=== PATIENT | female | born 1985 | race Caucasian/White ===

== ENCOUNTER 2018-10-28 08:46 | Inpatient (IN) ==
[2018-11-25] MEDS ORDERED: NICOTINE GUM BUCCAL PRN (13:31)
[2018-11-25] MEDS ORDERED: ZOFRAN IV PRN (13:31)
[2018-11-25] MEDS ORDERED: IMODIUM PO PRN ×2 (13:31)
[2018-11-25] MEDS ORDERED: D5W 1,000 ML IV PRN (13:31)
[2018-11-25] MEDS ORDERED: PHENOBARBITAL IV PRN (13:31)
[2018-11-25] MEDS ORDERED: DESYREL PO PRN (13:31)
[2018-11-25] MEDS ORDERED: SEROQUEL PO PRN (13:31)
[2018-11-25] MEDS ORDERED: MAALOX PLUS LIQUID PO PRN (13:31)
[2018-11-25] MEDS ORDERED: ZOFRAN ODT PO PRN (13:31)
[2018-11-25] MEDS ORDERED: TYLENOL PO PRN (13:31)
[2018-11-25] MEDS ORDERED: SENOKOT PO PRN (13:31)
[2018-11-25] MEDS ORDERED: DULCOLAX PR PRN (13:31)
[2018-11-25] MEDS ORDERED: TUBERSOL ID ONE (13:31)
[2018-11-25] MEDS ORDERED: MOTRIN PO PRN (13:31)
[2018-11-25] MEDS ORDERED: NICODERM PATCH TD PRN (13:31)
[2018-11-25] MEDS ORDERED: ZOFRAN IM PRN (13:31)
[2018-11-25 14:02] LABS: UR AMPHETAMINES QUAL PRESUMPTIVE POSITIVE (NONE DETECT); UR BARBITUATES QUAL NONE DETECTED (NONE DETECT); UR BENZODIAZEPIN QUAL NONE DETECTED (NONE DETECT); UR CANNABINOIDS QUAL NONE DETECTED (NONE DETECT); UR COCAINE QUAL NONE DETECTED (NONE DETECT); UR METHADONE QUAL NONE DETECTED (NONE DETECT); UR METHAMPHETAMINE QUAL PRESUMPTIVE POSITIVE (NONE DETECT); UR OPIATES QUAL PRESUMPTIVE POSITIVE (NONE DETECT); UR OXYCODONE QUAL NONE DETECTED (NONE DETECT); UR PCP QUAL PRESUMPTIVE POSITIVE (NONE DETECT); UR PROPOXYPHENE QUAL NONE DETECTED (NONE DETECT); UR TCA QUAL NONE DETECTED (NONE DETECT)
[2018-11-25 14:13] LABS: HEMATOCRIT 40.4 % (37.0-47.0); HEMOGLOBIN 13.7 g/dL (12.0-16.0); MCH 28.8 PG (27-31); MCHC 33.9 g/dL (33-37); MCV 84.9 FL (81-99); MPV 11.6 FL (7.4-10.4); RBC 4.76 XMIL (4.2-5.4); RDW 13.2 % (11.5-14.5); WBC 7.49 X1000 (4.8-10.8)
[2018-11-25 14:32] LABS: INR 0.82; PROTIME 11.7 Seconds (11.0-16.0)
[2018-11-25 14:44] LABS: AGAP 9; ALBUMIN 3.7 g/dL (3.5-5.0); ALKALINE PHOSPHATASE 630 U/L (32-104); AMYLASE 27 U/L (20-200); BUN 12 mg/dL (8-22); CALCIUM 8.7 mg/dL (8.8-10.2); CHLORIDE 100 mmol/L (98-107); COSMO 274; CREATININE 0.5 mg/dL (0.5-0.9); ESTIMATED GFR > 60; GLUCOSE 107 mg/dL (70-104); GOT 69 U/L (10-30); GPT 56 U/L (10-36); LIPASE 22 U/L (13-60); POTASSIUM 3.8 mmol/L (3.5-5.1); SODIUM 137 mmol/L (136-145); TCO2 28 mmol/L (25-35); TOTAL PROTEIN 7.1 g/dL (6.3-8.3)
[2018-11-25 14:47] LABS: URINE SOURCE CLEAN CATCH
[2018-11-25] MEDS ORDERED: ROBAXIN PO PRN (14:51)
[2018-11-25] MEDS ORDERED: BENTYL PO PRN (14:51)
[2018-11-25] MEDS ORDERED: SINEMET 25/100 PO PRN (14:51)
[2018-11-25] MEDS ORDERED: ATARAX PO PRN (14:51)
[2018-11-25] MEDS ORDERED: LIBRIUM PO PRN (14:51)
[2018-11-25 14:55] LABS: CLARITY CLEAR (CLEAR); COLOR YELLOW
[2018-11-25 14:56] LABS: BILIRUBIN URINE NEGATIVE (NEGATIVE); BLOOD URINE NEGATIVE (NEGATIVE); GLUCOSE URINE NEGATIVE (NEGATIVE); KETONE URINE TRACE mg/dL (NEGATIVE); LEUKOCYTES URINE 1+ (NEGATIVE); NITRITE URINE POSITIVE (NEGATIVE); PH URINE 6.5; PROTEIN URINE TRACE mg/dL (NEGATIVE); UROBILINOGEN URINE 1 mg/dL
[2018-11-25 14:59] LABS: URINE BACTERIA 1+ /HFP; URINE CAST NONE SEEN /LPF; URINE CRYSTAL NONE SEEN /HPF; URINE EPITHELIAL CELLS >10 /HPF (<10); URINE YEAST NONE SEEN /HPF
[2018-11-25] MEDS ORDERED: LIBRIUM PO SCH (16:00)
[2018-11-25] MEDS: LIBRIUM PO SCH (22:31)
[2018-11-26] MEDS: LIBRIUM PO SCH ×2 (04:22→09:55)
[2018-11-26] MEDS ORDERED: PROTONIX PO SCH (07:00)
[2018-11-26 08:51] VITALS: BP 117/74
[2018-11-26] MEDS ORDERED: THERA M PLUS PO SCH (09:00)
[2018-11-26] MEDS ORDERED: FOLIC ACID PO SCH (09:00)
[2018-11-26] MEDS ORDERED: VITAMIN B-1 PO SCH (09:00)
--- NOTE | 2018-11-27 10:00 | DISCHARGE SUMMARY ---
ADMISSION DATE: 11/25/2018 DISCHARGE DATE: 11/26/2018 DISCHARGE DIAGNOSES: 1. Nausea and vomiting. 2. Abdominal pain. 3. Myalgias. 4. Paresthesias. 5. Paroxysmal sweating. 6. Chronic tobacco abuse. 7. Chronic anxiety. CONSULTATIONS: None. PROCEDURES: None. BRIEF HOSPITAL COURSE: The patient is a 33-year-old female who presented to the hospital with significant withdrawal symptoms of nausea, vomiting, abdominal pain, myalgias, and paresthesias. She thankfully had an uneventful hospital course. She stated on the morning of her leaving AMA that she was feeling much better. Her withdrawal symptoms were improved. However, she stated that she wanted to smoke. We did offer a nicotine patch. I spent 35 minutes on the date of discharge with Ms. Jean Baptiste, discussing use, abuse, addiction counseling, lifestyle changes, reasons to change, etc. Patient stated that she was feeling very good. DISPOSITION: No discharge disposition was able to be performed as sometime in the afternoon, Ms. Jean Baptiste decided to leave the hospital AMA. cc: Kalpesh Escobar MD
--- NOTE | 2018-11-27 20:30 | HISTORY AND PHYSICAL ---
CHIEF COMPLAINT: Nausea, vomiting. HISTORY OF PRESENT ILLNESS: Patient is a 33-year-old female who presented to [facility] secondary to nausea, vomiting, abdominal pain, myalgias, paroxysmal sweating and opiate abuse. SOCIAL HISTORY: Patient is single, she is unemployed, lives at home in [place]. PAST MEDICAL HISTORY: She has a history of fluid overload after surgical intervention. She has history of hypertension, chronic anxiety. MEDICATIONS: Metoprolol 25. ALLERGIES: No known drug allergies. REVIEW OF SYSTEMS: CINA score is 14 secondary to nausea, vomiting, abdominal pain, myalgias and paresthesias. Denies any headache, blurred vision, change in vision, denies any focalized numbness and weakness in her extremities, denies any dysuria, frequency, urgency, hesitancy, polyuria or polydipsia. Denies skin rashes, weight loss or weight gain. FAMILY HISTORY: Noncontributory. SUBSTANCE ABUSE HISTORY: The patient has a 6-year-old who is in a safety plan with [facility]. She has created social and legal issues due to substance abuse. She was in [facility] for detox in 2018, remained sober for 6 months while she was going to [facility] on Suboxone. Started alcohol at 26, has been sober for 9 years. Started marijuana at 19 has not used in 8 years, started stimulants at 32 has not used in several days. Started opiates at 33, currently is still taking an 8th to a 4th a gram of heroin a day. Started smoking at 19 currently smokes half pack. FAMILY HISTORY: Noncontributory. PHYSICAL: Vital signs reviewed and stable. Patient is awake, alert, she is in no current respiratory distress.HEENT: Normocephalic. Neck: Supple. CV: Regular rate. Chest: Clear. Abdomen: Soft. Extremities: Moves all extremities. Neuro: No focal changes. Skin: Warm, dry, no rashes. ASSESSMENT: 1. Nausea, vomiting. 2. Abdominal pain. 3. Myalgias. 4. Paresthesias. 5. Paroxysmal sweating. 6. Opiate abuse withdrawal and stabilization. PLAN: Will admit patient the hospital, will continue to follow. Her plan is to go to rehab upon discharge. We will admit her, place her on high-dose Librium taper, will use Suboxone as needed to alleviate symptoms. Will begin counseling, further orders as needed. cc: Kalpesh Escobar MD
== END 2018-11-26 12:00 | disposition left against medical advice (07) | DRG 894 ==
LOC: P.DIRADM 11-25 12:09 → P.MEDSURG 11-25 12:21
PROVIDERS: ADMIT Family Medicine; ATTEND Family Medicine
CPT/HCPCS: 80053; 80104; 80301; 80305; 80307; 80320; 81001; 82055; 82150; 83690; 84703; 85027; 85610; 86580; A9270; G0431; G0434; G0477; G0480; G6040

== ENCOUNTER 2019-01-11 17:40 | Inpatient (IN) ==
[2019-01-11] MEDS ORDERED: CALMOSEPTINE OINTMENT TOP PRN (19:41)
[2019-01-11] MEDS ORDERED: ZOFRAN IV PRN (21:34)
[2019-01-11] MEDS ORDERED: ATIVAN IV ONE (21:44)
[2019-01-11] MEDS ORDERED: TYLENOL PO PRN (21:44)
[2019-01-11] MEDS ORDERED: SODIUM CHLORIDE 0.9% INJ SCH (21:45)
[2019-01-11] MEDS ORDERED: TYLENOL PR PRN (21:45)
[2019-01-11] MEDS ORDERED: NS 1,000 ML IV SCH (21:45)
[2019-01-11] MEDS ORDERED: PEPCID IV SCH (21:45)
--- NOTE | 2019-01-11 21:59 | Diag Imaging Result Doc PS360 ---
EXAM: CHEST-PORTABLE 01/11/2019 HISTORY: Toxic Encephalopathy,Poss. Overdose TECHNIQUE: AP portable at 2151 COMMENT: Compared to 01/07/2016 the atelectatic changes present previously on the right have resolved. The heart size and pulmonary vascularity appear to be within normal limits. The left costophrenic angle is clearer than on the previous study although there may be a linear fibrotic opacity tenting the heart border on the left. This was not the case on the previous study. IMPRESSION: No evidence of acute disease. Electronically signed by Evan Ponce 01/11/2019 9:57 PM
[2019-01-11] MEDS ORDERED: CALCIUM CHLORIDE SYRINGE ONE (22:00)
[2019-01-11] MEDS ORDERED: ATROPINE SYRINGE ONE (22:00)
[2019-01-11] MEDS ORDERED: EPINEPHRINE SYRINGE ONE (22:00)
[2019-01-11] MEDS ORDERED: AMIDATE IV ONE (22:30)
[2019-01-11] MEDS ORDERED: QUELICIN IV ONE (22:30)
[2019-01-11] MEDS ORDERED: VERSED ONE (22:39)
[2019-01-11] MEDS ORDERED: DIPRIVAN 1% ONE (22:39)
[2019-01-11] MEDS ORDERED: AMIDATE ONE (22:39)
[2019-01-11] MEDS ORDERED: NORCURON ONE (22:39)
[2019-01-11] MEDS ORDERED: QUELICIN ONE (22:40)
[2019-01-11] MEDS ORDERED: DIPRIVAN 1% 1,000 MG/100 ML BOTTLE IV SCH (22:45)
--- NOTE | 2019-01-11 22:56 | PROVIDER PROGRESS NOTE ---
Progress Note Intubation Procedure: Pt was admitted to the ICU, I was called up to intubate the patient, upon arrival pt was unresponsive and being bagged, pt was given 20 of etomidate and 150 of sucs, pt intubated with glidescope, visualized the ET tube passing through the cords, confirmed with color change and auscultation, intubated with 7.5 tube, 24 at the teeth, no complications, well tolerated, tube was secured and connected to the vent. Care was then resumed by Dr. Whitten
[2019-01-11] MEDS ORDERED: DOPAMINE 800 MG/D5W 800 MG/500 ML IV.SOLN IV SCH (23:00)
[2019-01-11] MEDS ORDERED: DOPAMINE 800 MG/D5W 800 MG/500 ML IV.SOLN ONE (23:15)
[2019-01-11] MEDS ORDERED: DOPAMINE 800 MG/D5W 800 MG/250 ML IV.SOLN IV SCH (23:15)
[2019-01-12 00:46] LABS: ALB/GLOB RATIO 0.9; ALBUMIN 2.8 g/dL (3.5-5.0); CREATININE 2.4 mg/dL (0.5-0.9); MAGNESIUM 2.8 mg/dL (1.5-2.7); POTASSIUM 4.9 mmol/L (3.5-5.1); TOTAL BILIRUBIN 0.86 mg/dL (0.20-1.00)
[2019-01-12 01:30] LABS: CK INDEX 0.9 (0.0-2.5); CK-MB 7.66 ng/mL (0.0-5.0)
[2019-01-12] MEDS ORDERED: DOPAMINE 800 MG/D5W 800 MG/500 ML IV.SOLN IV SCH (04:15)
[2019-01-12] MEDS ORDERED: LEVOPHED 8 MG in D5 1/2 NS 250 ML IV SCH (04:15)
[2019-01-12 04:22] VITALS: BP 55/41
--- NOTE | 2019-01-12 05:21 | EKG Report ---
Test Performed on : 01/11/2019 10:34:39 PM Test Reason : TACHY Blood Pressure : / mmHG Vent. Rate : 128 BPM Atrial Rate : 101 BPM P-R Int : 000 ms QRS Dur : 210 ms QT Int : 444 ms P-R-T Axes : 000 179 117 degrees QTc Int : 648 ms Sinus tachycardia. with premature ventricular or aberrantly conducted complexes. Right bundle branch block Diffuse ST and T wave abnormalities Clinical Correlation advised Abnormal ECG No previous ECGs available Confirmed by Mitchel Luis MD ([id number]) on 01/15/2019 9:52:04 PM
--- NOTE | 2019-01-12 10:14 | HISTORY AND PHYSICAL ---
PRIMARY CARE PHYSICIAN: The patient does not have a primary care provider. DATE: 01/11/2019 at 2015. CHIEF COMPLAINT: Altered mental status. HISTORY OF PRESENT ILLNESS: Ms. Jean Baptiste is a 33-year-old female who has a past medical history of hypertension, chronic anxiety, and polysubstance drug abuse. She has, according to our records, been admitted to the [facility] for drug abuse, most recently was in 11/2018, for which she was treated for opiate abuse, withdrawal, and stabilization, though she did not complete this treatment. She did end up leaving the hospital AGAINST MEDICAL ADVICE. It does appear that on previous urine drug screen from 10/2018, she was positive for opiates, phencyclidine, amphetamines, and methamphetamines. The patient was transferred here from [facility] ER this evening. According to [facility] ER notes, she arrived by ambulance after being found on scene, from what I understand was unresponsive. In the ER at [facility], they did find drugs on her person. The police department was contacted, and from what I understand, they did identify this drug substance to be heroin. There in the ER, they did give her Narcan. The patient was noted to be agitated, was not able to follow commands. She did have to be restrained there as well. They did perform EKG and labs, though after speaking with the nurse at [facility] ER I was informed that they were unable to complete x-ray studies of CT of the head due to her agitation level. Pertinent laboratory findings from their laboratory results, on her drug screen, she was positive for amphetamines, methamphetamine, and opiates. Serum alcohol was 0. Sodium was 135, potassium was slightly low at 3, chloride 93, glucose 170, BUN was 19, creatinine 0.8, calcium 9.3. Urine was negative. Urinalysis did show to be nitrite positive as well as having protein, ketones, white blood cells, and blood noted. Upon arrival to our facility here, the patient's initial vital signs were heart rate 140, respirations 36, blood pressure 153/87, oxygen saturation was 95% on nasal cannula at 2 L. The patient was having intermittent periods of lethargy and agitation. At times, she would open her eyes and look around, though was was not able to answer questions or follow commands. All of her history of present illness and past medical history was obtained from previous medical records, [facility]'s ER records, and some additional information was obtained from her brother, whose name is Brendon. Her brother Brendon did report that he was unaware of where she lives or where she could have possibly been today. The only medical history that knew of her to have was that she did have a cholecystectomy, which was complicated by what I think might be be a bowel perforation from his description of events, and did spend a long period of time in the hospital. She was reported to have stents placed in her liver and bile duct, according to previous records. The patient has been placed in the ICU. We will go ahead and initiate new laboratory orders of CBC, CMP, magnesium, PT, PTT, urinalysis, urine , urine drug screen, salicylate and acetaminophen, and troponin, as well as CK Profile. The nurses did note upon the patient's arrival, after they cleaned her up, that she did have some stool that appeared black in color. We have ordered a Hemoccult stool as well. We will order radiology studies of chest x-ray and CT head without contrast. EKG performed at [facility] showed that she was in sinus tachycardia. The rate was 114. REVIEW OF SYSTEMS: Unable to be performed with the patient due to her current condition and mentation. PAST MEDICAL HISTORY: 1. Hypertension. 2. Chronic anxiety. 3. Polysubstance drug abuse. 4. Alcohol abuse. 5. A reported approximately 27-day admission to the hospital, for which she had a cholecystectomy with complications, and did have to have stents placed in the liver and bile duct. PAST SURGICAL HISTORY: Cholecystectomy as mentioned above, though did have complications requiring stents placed in liver and bile duct. SOCIAL HISTORY: The patient, on the most recent record in 11/2018, was noted to be single and that she was unemployed and lived in [place]. She reportedly has a 6-year-old son, who the mother at this time, I believe, has custody secondary to some social and legal issues due to substance abuse. She has been treated twice in the [facility], most recently in 11/2018. Unfortunately though, she did sign out AGAINST MEDICAL ADVICE during this treatment admission. She reportedly has previous abuse of alcohol, marijuana, stimulants, opiates, and heroin. She also is a smoker as well. Most recently, we had her documented as smoking a half a pack of cigarettes a day. FAMILY HISTORY: Unable to be obtained at this time due to the patient's current condition and mentation. ALLERGIES: The patient has no known allergies. HOME MEDICATIONS: At this time, we were unable to obtain and verify her home medications due to the patient's current condition and mentation. DIAGNOSTIC DATA: The following diagnostic data was obtained from her recent labs that were performed at [facility] ER, which include white blood cell count 13,500, hemoglobin 16.9, hematocrit 49, platelet count is 96,000. Sodium 135, potassium 3, chloride 93, glucose 170, serum bicarb is 21, BUN 19, creatinine 0.8. ALT 33, AST 46, total bilirubin 0.9, alkaline phosphatase is 447, calcium 9.3. Urine was negative. Urine drug screen was positive for amphetamines, methamphetamines, and opiates. Urinalysis did show that she was nitrite positive with 3+ protein, 1+ ketones, 1+ bilirubin, and 3+ blood. Color was noted to be dark- yellow, slightly cloudy, with a few white blood cells. EKG at [facility] showed sinus tachycardia at a rate of 114. The following diagnostic studies were obtained here at our facility. Upon the patient's arrival, the IV access she previously had placed at [facility] was lost, and we did have a difficult time obtaining new IV access, as well as labs, though we were able to obtain a chest x- ray, which did show no evidence of acute disease compared to 01/07/2016. The atelectatic changes present previously on the right have resolved. The heart size and pulmonary vascularity appear to be within normal limits. The left costophrenic angle is clearer than on the previous study, although there may be a linear fibrotic opacity tenting the heart border on the left. EKG showed sinus tachycardia with occasional and consecutive premature ventricular complexes and fusion complexes and a right bundle branch block at a rate of 114 with a QTc of 512. Pending diagnostic studies at this time include a CT of the head without contrast, CBC, CMP, magnesium, troponin, CK, acetaminophen level, salicylate level, urine drug screen, urinalysis, and a Hemoccult stool. PHYSICAL EXAMINATION: VITAL SIGNS: Heart rate 120, respirations 27, blood pressure 128/73, oxygen saturation is 96% nasal cannula at 2 L. GENERAL: Ms. Jean Baptiste is a 33-year-old female in the ICU stretcher. She is somewhat lethargic at times with periods of agitation, though will wake up and open her eyes, though she is not able to answer questions and was not able to follow commands. HEENT: Head is atraumatic, normocephalic. Pupils are approximately 7 mm bilaterally, reactive, though were sluggish. Oral mucosa is slightly dry. NECK: Supple. Trachea midline. CARDIOVASCULAR: The patient had S1, S2 present. She does have a tachycardic rate that is regular. PULMONARY: The patient has symmetrical chest expansion bilaterally. Lung sounds in bilateral full mijares were coarse and did have some coarse crackles noted as well. ABDOMEN: Soft, nondistended. Bowel sounds were present in all 4 quadrants. She does have a linear abdominal surgical scar noted. GENITOURINARY: The patient does have a George catheter in place, and does have dark, victor manuel-colored urine noted to George drainage bag. EXTREMITIES: No cyanosis or edema noted at this time. The patient is moving all extremities. Radial and pedal pulses were 3+ bilaterally. INTEGUMENTARY: The patient's skin color is pale, though it is dry and intact. NEUROLOGICAL: The patient is lethargic at times with periods of agitation, though will awaken, open her eyes and look around, though is not able to answer questions and not able to follow commands. Pupils as previously mentioned, were approximately 7, were equal bilaterally, though were sluggish. She is able to move all extremities. Her neurological exam at this time is limited due to her current condition and mentation. ASSESSMENT AND PLAN: 1. Toxic encephalopathy. At this time, we believe this is likely secondary to polysubstance drug abuse. The patient was positive for opiates, amphetamines, and methamphetamines. She was noted to have been found to have heroin on her person in the emergency room at [facility]. We are going to try to obtain a CT of the head without contrast. It was noted that previously, they were unable to perform this at [facility] due to her agitation. We will provide some fluid hydration. We are awaiting repeat laboratory studies at this time. She has been placed in the intensive care unit. Will receive continuous cardiac telemetry and pulse oximetry, as well as frequent vital signs per intensive care unit protocol, and will continue to monitor her status closely. 2. Polysubstance drug abuse/ overdose. As previously mentioned, the patient does have a history of drug abuse. She was positive for opiates, methamphetamines, and amphetamine. 3. Nicotine dependence. We will student services counselor the patient on the importance of smoking cessation once her mentation improves. 4. Deep venous thrombosis prophylaxis will be provided with sequential compression devices. HOSPITAL COURSE: Shortly after the patient's arrival at 2230, she did become more agitated, became tachycardic, and heart rate did increase at times to 160s to 180s. We did attempt to calm the patient. Also at this time, she began having some respiratory problems. She became tachypneic. Respirations became more labored. She did have oxygen saturations that were reading in the high 80s. We did place her on a nonrebreather. Dr. Whitten, the attending physician for the Hospitalist Service, was notified immediately. He was at bedside. The patient's heart rate continued to be elevated. Her respirations continued to be labored and tachypneic. She did have some mottling noted to lower extremities. We did plan to intubate her. Dr. Hayden, the ER physician, did arrive at bedside. He did intubate the patient. Intubation was successful with a size 7.5 ET tube placed and secured at 24 cm at the right lip. Medications of etomidate and succinylcholine were given for assistance with intubation. The patient was hypotensive after intubation with a blood pressure of 77/60. Heart rate was still 160s at this time. We did implement IV fluids, as well as a Levophed infusion. We did order Diprivan for sedation. The patient's heart rate after this did improve into the 120s, blood pressure did improve as well, being 135/66, though approximately 20 minutes after intubation, the patient did begin to become bradycardic. Heart rate got into the 40s. We did give atropine IV, though she did continue to become more bradycardiac and did lose a pulse. She was PEA on the monitor at 2310, and we did initiate CPR. Andrzej trotter was called. ACLS protocol was initiated. From 2309 until 14, the patient was being coded. Throughout the code there were times where she regained and lost a pulse. She did have rhythms of PEA, ventricular fibrillation, and asystole. She was defibrillated. Emergency ACLS medications of epinephrine, Levophed, dopamine, calcium, magnesium, sodium bicarbonate, and D50 were given. Despite all resuscitative measures, the patient did succumb to her illness. Time of was called at 0015. Prior to the patient's code, as well as during the code, myself and Dr. Whitten did speak with the patient's brother, Brendon. We did attempt to call her mother, though at the time were unable to reach her. The patient's mother did arrive to the hospital after the patient had passed, and we did update her on the patient's condition. All of the family's questions were answered. Dictated by MAUDE Neri for Betito Whitten MD I have performed a face to face diagnostic evaluation. Labs/ Xrays- reviewed. Exam- Chest- rhonchi, CV- tachy, Neuro altered. Briefly, patient was transferred from [facility] to our facility for Drug Overdose due to lack of ICU bed there. Patient was altered and went into respiratory failure and cardiac arrest. Our ER physician rapidly intubated patient. ACLS protocol was initiated. Patient did not improve despite all treatment offered and eventually succumbed to her illness. Patient was pronounced at 00: 15 Only relative there was her brother. Patient body to be released to home. Dr. Whitten cc: Betito Whitten MD [facility]
== END 2019-01-12 00:15 | disposition expired | DRG 917 ==
LOC: DIRADM 17:40 → ICU 19:06
PROVIDERS: ATTEND Emergency Medicine